=== PATIENT | female | born 1975 | race Two or more races ===

== ENCOUNTER 2020-08-23 16:02 | Emergency (ER) | payer OTHER ==
[~2020-08-23] VITALS: Ht 157.5 cm; Wt 79.4 kg
--- NOTE | 2020-08-23 16:59 | NUR ---
Pt was evaluated by dr Loving. Pt was d/c'D to home. D/C instructions given to the pt by dr Loving.
[2020-08-23 17:01] VITALS: BP 128/78
== END 2020-08-23 17:01 | disposition home or self-care (01) ==
LOC: ER 16:02
DX: S61.210D Laceration without foreign body of right index finger without damage to nail, subsequent encounter (principal); X58.XXXD Exposure to other specified factors, subsequent encounter; Z86.73 Personal history of transient ischemic attack (TIA), and cerebral infarction without residual deficits; J45.909 Unspecified asthma, uncomplicated
CPT/HCPCS: A4663

== ENCOUNTER 2020-10-11 23:59 | Emergency (ER) | payer OTHER ==
[~2020-10-11] VITALS: Ht 157.5 cm; Wt 75.7 kg
[2020-10-12 00:46] LABS: MEAN CORPUSCULAR HEMOGLOBIN 30.8 uug (24.7-32.8); MEAN CORPUSCULAR VOLUME 92.5 fL (75.5-95.3); PLATELET COUNT (AUTO) 430 K/uL (179-408)
[2020-10-12 00:59] LABS: CREATININE 0.9 mg/dL (0.6-1.3); POTASSIUM 4.4 mmol/L (3.5-5.1)
[2020-10-12 01:05] LABS: BILIRUBIN,DIRECT 0.1 mg/dL (0.0-0.2); BILIRUBIN,TOTAL 0.2 mg/dL (0.2-1.0); TOTAL PROTEIN, SERUM 7.5 g/dL (6.4-8.2)
--- NOTE | 2020-10-12 01:45 | NUR ---
Pt here for L wrist and L ankle pain w/ bruising that started 1 week ago. Denies any trauma to the area. VSS. No other symptoms.
[2020-10-12 02:09] VITALS: BP 129/79
--- NOTE | 2020-10-12 02:09 | NUR ---
Patient discharged to home in stable condition. Written and verbal after care instructions given. Patient verbalizes understanding of instructions. Stressed follow up or return to ER for worsening s/s. NAD. VSS. Pt walks w/ steady gait. All belongings taken.
== END 2020-10-12 02:10 | disposition home or self-care (01) ==
LOC: ER 10-12 00:02
DX: S60.212A Contusion of left wrist, initial encounter (principal); S60.221A Contusion of right hand, initial encounter; S90.02XA Contusion of left ankle, initial encounter; S80.11XA Contusion of right lower leg, initial encounter; S40.021A Contusion of right upper arm, initial encounter; X58.XXXA Exposure to other specified factors, initial encounter; Y92.89 Other specified places as the place of occurrence of the external cause; I25.2 Old myocardial infarction; E78.5 Hyperlipidemia, unspecified; Z79.02 Long term (current) use of antithrombotics/antiplatelets; I10 Essential (primary) hypertension; R22.32 Localized swelling, mass and lump, left upper limb; J45.909 Unspecified asthma, uncomplicated
CPT/HCPCS: 36415; 73090; 73130; 73590; 73610; 85025; 85730

== ENCOUNTER 2021-02-18 19:53 | Emergency (ER) | payer SELFPAY ==
--- NOTE | 2021-02-19 00:15 | NUR ---
Pt not in waiting room.
== END 2021-02-19 00:23 | disposition left against medical advice (07) ==
LOC: ER 19:56
DX: Z53.21 Procedure and treatment not carried out due to patient leaving prior to being seen by health care provider (principal)